=== PATIENT | female | born 1960 | race Caucasian/White ===

== ENCOUNTER 2022-03-27 16:57 | Outpatient (CLI) | payer OTHER ==
[2022-03-27 17:57] LABS: Bilirubin Neg (Negative); Blood, Urine 250 (Negative); Clarity Sl. Cloudy (Clear); Glucose, Urine (Dipstick) Normal (Negative); Ketone, Urine Negative (Negative); Leukocyte 25 (Negative); Nitrite Negative (Negative); Protein, Urine (Dipstick) 30 mg/dl (Neg-Trace); Urobilinogen Normal mg/dL (Less than 2)
[2022-03-27 17:59] LABS: Hemoglobin 13.6 g/dL (12.0-15.5); Mean Corpuscular HGB CONC 33.4 g/dL (32.0-36.0); Mean Corpuscular Hemoglobin 31.1 pg (27.0-33.0); Mean Corpuscular Volume 93.1 fl (81.6-98.3); Mean Platelet Volume 11.2 fl (7.4-10.4); Platelet Count 281 10x3/uL (150-450); RBC Distribution Width 13.3 % (11.5-14.5); Red Blood Cell (RBC) Count 4.37 10x6/uL (3.90-5.03); White Blood Cell (WBC) Count 6.1 10x3/uL (3.5-10.5)
[2022-03-27 18:05] LABS: Bacteria/HPF 1+ HPF (None Seen); Mucous/LPF 1+ LPF (<2+); Squamous Epithelial 0-3 HPF (0-3); WBC/HPF 0-3 HPF (0-3)
[2022-03-27 18:15] LABS: INR-International Normal Ratio 0.9; PTT 28.7 sec (22.0-33.0); Prothrombin Time 10.3 sec (9.5-12.1)
[2022-03-27 18:16] LABS: Anion Gap 12 mmol/L (10-20); BUN (Urea Nitrogen) 17 mg/dL (9.8-20.1); Calc. Creatinine Clearance 0 mL/min (70-130); Calcium 9.9 mg/dL (7.8-10.44); Carbon Dioxide 27 mmol/L (22-29); Chloride 105 mmol/L (98-107); Estimated GFR 77; Glucose 98 mg/dL (70-105); Potassium 4.1 mmol/L (3.5-5.1); Sodium 140 mmol/L (136-145)
== END 2022-03-27 16:58 | disposition home or self-care (01) ==
LOC: LABBT 16:57
PROVIDERS: ATTEND Urology
DX: Z01.812 Encounter for preprocedural laboratory examination (principal); N20.0 Calculus of kidney; K80.10 Calculus of gallbladder with chronic cholecystitis without obstruction
CPT/HCPCS: 80048; 81001; 85027; 85610; 85730; 87086

== ENCOUNTER 2022-03-30 07:01 | Day surgery (SDC) | payer OTHER ==
[2022-03-29 14:10] VITALS: BMI 33.8
[2022-03-30] MEDS ORDERED: Lidocaine 1% MPF 2 ML VIAL ONE (07:54)
[2022-03-30] MEDS ORDERED: Midazolam HCl 2 mg/2 ml Vial ONE (08:47)
[2022-03-30] MEDS ORDERED: fentaNYL PF 100 MCG/2 ML SYRINGE ONE (09:17)
[2022-03-30] MEDS ORDERED: Levofloxacin 500 mg/D5W 100 ml Premix Bag ONE (09:29)
[2022-03-30] MEDS ORDERED: NEOSTIGMINE 3 MG/3 ML SYR 3 MG/3 ML SYRINGE ONE (09:45)
[2022-03-30] MEDS ORDERED: PROPOFOL 200 MG/20 ML VIAL ONE (09:45)
[2022-03-30] MEDS ORDERED: Rocuronium Bromide 10 MG/ML (10ML VIAL) ONE (09:45)
[2022-03-30] MEDS ORDERED: Ondansetron PF 4 MG/2 ML Vial ONE (09:45)
[2022-03-30] MEDS ORDERED: Dexamethasone 20 MG/5 ML VIAL ONE (09:45)
[2022-03-30] MEDS ORDERED: Glycopyrrolate 0.2 MG/ML 5 ML SYRINGE ONE (09:45)
[2022-03-30] MEDS ORDERED: Ketorolac Tromethamine 30 MG/ML VIAL ONE (11:07)
[2022-03-30] MEDS ORDERED: HYDROcodone/Acetaminophen 5/325 mg Tablet ONE (12:14)
== END 2022-03-30 12:20 | disposition home or self-care (01) ==
LOC: SDC 07:01
PROVIDERS: ATTEND Urology
PROC: 0TF7XZZ Fragmentation in Left Ureter, External Approach (ICD-10-PCS; principal; 2022-03-30)
DX: N20.1 Calculus of ureter (principal); Z91.018 Allergy to other foods
CPT/HCPCS: J1100; J1885; J1956; J2250; J2405; J2704

== ENCOUNTER 2022-04-12 08:58 | Outpatient (CLI) | payer OTHER | END 2022-04-12 08:59 | disposition home or self-care (01) | LOC: BICRAD 08:58 | PROVIDERS: ATTEND Urology | DX: N20.0 Calculus of kidney (principal) | CPT/HCPCS: 74018 ==